=== PATIENT | male | born 1985 | race Asian ===

== ENCOUNTER 2016-12-03 22:55 | Emergency (ER) | payer OTHER ==
[~2016-12-03] VITALS: Ht 170.2 cm; Wt 55.8 kg
--- NOTE | 2016-12-03 23:41 | Emergency Room Report ---
History of Present Illness General Chief Complaint: Lower Extremity Injury Source: Patient Present Illness HPI This is a 31-year-old male with no past medical history. He presents with chief complaint of left leg injury. Was placed softball today and I for a ball. He sustained abrasion to the lateral aspect of his left leg. He came in because is swollen. Tender to palpation. Able to walk without any difficulty. No other injury. This occur several hours prior to arrival. Allergies: Coded Allergies: No Known Allergies (Unverified , 12/03/16) Patient History Past Medical History: none, see triage record, old chart reviewed Past Surgical History: none Pertinent Family History: none Social History: Denies: drug use Immunizations: UTD Reviewed Nursing Documentation: PMH: Agreed, PSxH: Agreed Nursing Documentation-PMH Past Medical History: No Stated History Review of Systems Eye: Denies: blurred vision, eye pain ENT: Denies: ear pain, nose congestion, throat swelling Respiratory: Denies: cough, shortness of breath Cardiovascular: Denies: chest pain, palpitations Gastrointestinal: Denies: abdominal pain, diarrhea, nausea, vomiting Musculoskeletal: Denies: back pain, joint pain Skin: Denies: rash Neurological: Denies: headache, numbness Endocrine: Denies: increased thirst, increased urine Hematologic/Lymphatic: Denies: easy bruising All Other Systems: negative except mentioned in HPI Physical Exam Vital Signs Date Time Temp Pulse Resp B/P Pulse Ox O2 Delivery O2 Flow Rate FiO2 12/03/16 23:25 97.7 55 18 125/60 98 Room Air vitals normal Sp02 EP Interpretation: reviewed, normal General Appearance: well appearing, no apparent distress, alert Head: normocephalic, atraumatic Eyes: bilateral eye EOMI, bilateral eye PERRL ENT: hearing grossly normal, normal pharynx Neck: full range of motion, supple, no meningismus Respiratory: chest non-tender, lungs clear, normal breath sounds Cardiovascular #1: regular rate, rhythm, no murmur Gastrointestinal: normal bowel sounds, non tender, no mass, no organomegaly, no bruit, non-distended Musculoskeletal: back normal, gait/station normal, normal range of motion, other - abrasion and mild edema to calf. no bony tenderness. Neurologic: alert, oriented x3 Psychiatric: mood/affect normal Skin: warm/dry Medical Decision Making Diagnostic Impression: Primary Impression: Abrasion, left lower leg, initial encounter Additional Impression: Contusion of left lower leg, initial encounter ER Course Patient presents with abrasion to the extremity. There is some edema probably secondary to contusion and hematoma. No evidence of clot. No evidence of fracture clinical exam. Pain is over the soft tissue. No bony tenderness. We' ll discharge home. No need for x-rays. Last Vital Signs Date Time Temp Pulse Resp B/P Pulse Ox O2 Delivery O2 Flow Rate FiO2 12/03/16 23:25 97.7 55 18 125/60 98 Room Air Status: unchanged Disposition: HOME, SELF-CARE Condition: Stable Scripts Mupirocin Calcium (Bactroban) 15 Gm Cream..g. 1 APPLIC TOPIC THREE TIMES A DAY, #15 GM Prov: ARCHIE EAST M.D. 12/03/16 Additional Instructions: Follow up with your doctor in 7 days. Return for evidence of infection. ARCHIE EAST M.D. December 03, 2016 23:41
[2016-12-03] MEDS ORDERED: BACTROBAN CR1 APPLIC TOPIC (23:42)
[2016-12-03 23:45] VITALS: BP 125/60
== END 2016-12-03 23:45 | disposition home or self-care (01) ==
LOC: EMR 23:45
DX: S80.812A Abrasion, left lower leg, initial encounter (principal); S80.12XA Contusion of left lower leg, initial encounter; X58.XXXA Exposure to other specified factors, initial encounter; Y93.64 Activity, baseball; Y92.9 Unspecified place or not applicable
CPT/HCPCS: 99283